=== PATIENT | female | born 1960 | race Caucasian/White ===

== ENCOUNTER 2022-10-27 01:55 | Inpatient (IN) | payer MEDICAID, OTHER ==
[~2022-10-27] VITALS: Ht 165.1 cm; Wt 64.9 kg
[2022-10-27 02:14] LABS: Basophils # (auto) 0.1 10 ^3/uL (0-0.2); Basophils % (auto) 0.5 % (0.0-2.0); Eosinophils # (auto) 0 10 ^3/uL (0-0.8); Eosinophils % (auto) 0.1 % (0.0-7.0); Hematocrit 40.2 % (36.0-46.0); Hemoglobin 13.5 g/dL (12.2-16.2); Lymphocytes # (auto) 1.5 10 ^3/uL (0.4-5.4); Lymphocytes % (auto) 13.1 % (10.0-50.0); Mean Corpuscular Hemoglobin 32.8 pg (28.0-32.0); Mean Corpuscular Hgb Conc. 33.5 g/dL (32.0-36.0); Mean Corpuscular Volume 97.8 fL (80.0-100.0); Monocytes # (auto) 0.6 10 ^3/uL (0-1.3); Monocytes % (auto) 5.5 % (0.0-12.0); Neutrophils # (auto) 9.2 10 ^3/uL (1.6-8.6); Neutrophils % (auto) 80.8 % (37.0-80.0); Nucleated Red Blood Cells % 0.1 %; Red Blood Cells 4.11 10^6/uL (4.0-5.20); White Blood Cell 11.4 10^3/uL (4.4-10.8)
[2022-10-27] MEDS ORDERED: MIDAZOLAM HCL 2MG/2ML 2ml VIAL (1mg/ml) IV ONE (02:15)
[2022-10-27] MEDS ORDERED: MAGNESIUM SULFATE 1GM/100ML 100 ML IV SCH (02:15)
[2022-10-27] MEDS: MAGNESIUM SULFATE 1GM/100ML 100 ML IV SCH ×2 (02:16→02:21)
[2022-10-27] MEDS ORDERED: dilTIAZem HCL 50 MG/10 ML VIAL IV ONE (02:16)
[2022-10-27] MEDS ORDERED: AMIODARONE HCL (50 MG/ ML) 3 ML VIAL IV ONE (02:20)
[2022-10-27] MEDS: AMIODARONE HCL 150 MG in D5W 5% 100 ML IV ONE ×2 (02:24→02:40)
[2022-10-27 02:33] LABS: Albumin 3.3 g/dL (3.4-5.0); BUN/Creatinine Ratio 14.4; Magnesium 1.9 mg/dL (1.6-2.6); Potassium 4.1 mmol/L (3.5-5.1)
[2022-10-27 02:36] LABS: Bilirubin, Total 0.9 mg/dL (0.2-1.0); Total Protein 7.3 g/dL (6.4-8.2)
[2022-10-27] MEDS ORDERED: dilTIAZem 25 MG/5 ML VIAL IV ONE ×2 (02:45)
[2022-10-27] MEDS ORDERED: dilTIAZem 125mg/125ml BAG KIT 100 ML IV SCH (02:45)
[2022-10-27 03:03] LABS: INR 1.1 (0.9-1.15); Partial Thromboplastin Time 26.8 sec (24.6-33.4)
[2022-10-27] MEDS ORDERED: DOBUTamine 1000MCG/ML 250 ML IV ONE (03:30)
[2022-10-27] MEDS ORDERED: NITROGLYCERIN 0.4 MG SL TAB SL PRN (06:00)
[2022-10-27] MEDS ORDERED: ACETAMINOPHEN 325 MG TAB PO PRN (06:00)
[2022-10-27] MEDS ORDERED: MORPHINE SULFATE INJ 2 MG/ml SYRG IV PRN (06:00)
[2022-10-27] MEDS ORDERED: ONDANSETRON HCL 4 MG/2 ML VIAL IV PRN (06:00)
[2022-10-27] MEDS: FUROSEMIDE 20 MG/2 ML VIAL IV SCH ×2 (06:13→18:50)
[2022-10-27] MEDS ORDERED: AMIODARONE HCL 75 MG in D5W 5% 100 ML IV ONE (07:15)
[2022-10-27] MEDS ORDERED: AMIODARONE 450mg/250ml AE 250 ML IV SCH (07:30)
[2022-10-27] MEDS ORDERED: HYDROCORTISONE SOD SUCC 100 MG/2ML INJ VIAL ONE (08:00)
[2022-10-27] MEDS: ASPirin 81 mg TAB PO SCH (09:58)
[2022-10-27] MEDS: PANTOPRAZOLE 40 MG TAB PO SCH (09:59)
[2022-10-27] MEDS ORDERED: CARVEDILOL 12.5 MG TAB PO SCH (10:00)
[2022-10-27] MEDS: DOBUTamine 1000MCG/ML 250 ML IV SCH (13:45)
[2022-10-27] MEDS: AMIODARONE 450mg/250ml AE 250 ML IV SCH (15:18)
[2022-10-27 16:12] VITALS: BP 80/58
[2022-10-27] MEDS ORDERED: LIDOCAINE 1% (LOCAL ANESTH.) PF 5ml SDV ID ONE (18:30)
[2022-10-27] MEDS: MIDODRINE HCL 10 MG TAB PO SCH (18:49)
[2022-10-27] MEDS: RIVAROXABAN 15 MG TAB PO SCH (18:50)
[2022-10-27] MEDS: LEVALBUTEROL HCL 1.25 MG/3 ML NEB NEB SCH (19:02)
[2022-10-27] MEDS: SODIUM CHLOR 0.9% PF (SALINE LOCK) 10ML VIAL/SYR IV SCH (22:00)
[2022-10-27] MEDS: ATORVASTATIN 20 MG TAB PO SCH (22:36)
[2022-10-27] MEDS: LORazepam 0.5 MG TAB PO PRN (22:37)
[2022-10-28] MEDS: DOBUTamine 1000MCG/ML 250 ML IV SCH (01:22)
[2022-10-28] MEDS: AMIODARONE 450mg/250ml AE 250 ML IV SCH ×2 (05:08→22:34)
[2022-10-28] MEDS: NOREPINEPHRINE 8 MG/250ML KIT 250 ML IV SCH ×2 (05:23→14:45)
[2022-10-28 05:41] LABS: Basophils # (auto) 0 10 ^3/uL (0-0.2); Basophils % (auto) 0.4 % (0.0-2.0); Eosinophils # (auto) 0 10 ^3/uL (0-0.8); Eosinophils % (auto) 0.5 % (0.0-7.0); Lymphocytes # (auto) 2.5 10 ^3/uL (0.4-5.4); Mean Corpuscular Hemoglobin 32.7 pg (28.0-32.0); Mean Corpuscular Hgb Conc. 35.3 g/dL (32.0-36.0); Mean Corpuscular Volume 92.7 fL (80.0-100.0); Monocytes # (auto) 0.8 10 ^3/uL (0-1.3); Monocytes % (auto) 10.9 % (0.0-12.0); Neutrophils # (auto) 4.1 10 ^3/uL (1.6-8.6); Neutrophils % (auto) 55.2 % (37.0-80.0); Nucleated Red Blood Cells % 0.1 %; Red Blood Cells 3.67 10^6/uL (4.0-5.20); Red Cell Distribution Width 12.8 % (11.8-14.3); White Blood Cell 7.5 10^3/uL (4.4-10.8)
[2022-10-28] MEDS: FUROSEMIDE 20 MG/2 ML VIAL IV SCH ×2 (05:48→18:53)
[2022-10-28] MEDS: MIDODRINE HCL 10 MG TAB PO SCH ×3 (05:54→18:49)
[2022-10-28 05:59] LABS: Albumin 2.9 g/dL (3.4-5.0); Calcium 8.2 mg/dL (8.5-10.1); Potassium 3.4 mmol/L (3.5-5.1)
[2022-10-28 06:05] LABS: BUN/Creatinine Ratio 17.8; Bilirubin, Total 1.1 mg/dL (0.2-1.0); Total Protein 6.6 g/dL (6.4-8.2)
[2022-10-28] MEDS: LEVALBUTEROL HCL 1.25 MG/3 ML NEB NEB SCH ×4 (06:30→18:31)
[2022-10-28 06:47] LABS: Alcohol, Urine < 3.0 mg/dL (0-10); Amphetamine Screen, Urine NEGATIVE (NEGATIVE); Barbiturate Scree,Urine NEGATIVE (NEGATIVE); Benzodiazephine Screen, Urine POSITIVE (NEGATIVE); Cannabinoid Screen, Urine NEGATIVE (NEGATIVE); Cocaine Screen, Urine NEGATIVE (NEGATIVE); Phencyclidine Screen, Urine NEGATIVE (NEGATIVE)
[2022-10-28 06:50] LABS: Opiate Scree,Urine NEGATIVE (NEGATIVE)
[2022-10-28] MEDS ORDERED: POTASSIUM CHL 20 Meq TABLET PO ONE (07:15)
[2022-10-28] MEDS: PANTOPRAZOLE 40 MG TAB PO SCH (10:59)
[2022-10-28] MEDS: ASPirin 81 mg TAB PO SCH (10:59)
[2022-10-28] MEDS: SODIUM CHLOR 0.9% PF (SALINE LOCK) 10ML VIAL/SYR IV SCH ×2 (11:00→22:28)
[2022-10-28] MEDS: RIVAROXABAN 15 MG TAB PO SCH (18:50)
[2022-10-28] MEDS: ATORVASTATIN 20 MG TAB PO SCH (22:28)
[2022-10-29] VITALS (45 sets, daily range): BP systolic 83–138; BP diastolic 51–101
[2022-10-29] MEDS: LEVALBUTEROL HCL 1.25 MG/3 ML NEB NEB SCH ×4 (00:21→19:16)
[2022-10-29] MEDS: NOREPINEPHRINE 8 MG/250ML KIT 250 ML IV SCH ×2 (01:37→03:00)
[2022-10-29] MEDS: LORazepam 0.5 MG TAB PO PRN ×2 (02:58→21:43)
[2022-10-29 06:03] LABS: Albumin 2.7 g/dL (3.4-5.0); BUN/Creatinine Ratio 19.8; Bilirubin, Total 0.4 mg/dL (0.2-1.0); Calcium 8.3 mg/dL (8.5-10.1); Magnesium 2.3 mg/dL (1.6-2.6); Potassium 3.2 mmol/L (3.5-5.1); Total Protein 6.7 g/dL (6.4-8.2)
[2022-10-29] MEDS: FUROSEMIDE 20 MG/2 ML VIAL IV SCH ×2 (06:21→18:28)
[2022-10-29] MEDS: MIDODRINE HCL 10 MG TAB PO SCH ×3 (06:23→18:28)
[2022-10-29] MEDS ORDERED: POTASSIUM CHL 20 Meq TABLET PO ONE (07:00)
[2022-10-29] MEDS: ASPirin 81 mg TAB PO SCH (08:14)
[2022-10-29] MEDS: SODIUM CHLOR 0.9% PF (SALINE LOCK) 10ML VIAL/SYR IV SCH ×2 (08:15→22:00)
[2022-10-29] MEDS: PANTOPRAZOLE 40 MG TAB PO SCH (08:15)
[2022-10-29] MEDS: AMIODARONE 450mg/250ml AE 250 ML IV SCH (14:29)
[2022-10-29] MEDS ORDERED: FURO20TA3 PO (16:54)
[2022-10-29] MEDS ORDERED: CARV25TA PO (16:54)
[2022-10-29] MEDS ORDERED: RIVA20TA PO (16:54)
[2022-10-29] MEDS ORDERED: SACU1TAB PO (16:54)
[2022-10-29] MEDS ORDERED: RIVAROXABAN 20 MG TAB PO SCH (18:00)
[2022-10-29] MEDS: ATORVASTATIN 20 MG TAB PO SCH (21:43)
[2022-10-30] MEDS: AMIODARONE 450mg/250ml AE 250 ML IV SCH ×2 (01:30→16:47)
[2022-10-30 05:00] VITALS: BP 111/83
[2022-10-30] MEDS: FUROSEMIDE 20 MG/2 ML VIAL IV SCH (05:43)
[2022-10-30] MEDS: MIDODRINE HCL 10 MG TAB PO SCH ×3 (05:44→17:39)
[2022-10-30 06:30] LABS: Basophils # (auto) 0 10 ^3/uL (0-0.2); Basophils % (auto) 0.8 % (0.0-2.0); Eosinophils # (auto) 0.1 10 ^3/uL (0-0.8); Eosinophils % (auto) 1.8 % (0.0-7.0); Hematocrit 40.2 % (36.0-46.0); Hemoglobin 13.7 g/dL (12.2-16.2); Lymphocytes # (auto) 2.4 10 ^3/uL (0.4-5.4); Lymphocytes % (auto) 39.9 % (10.0-50.0); Mean Corpuscular Hemoglobin 32.1 pg (28.0-32.0); Mean Corpuscular Volume 94.3 fL (80.0-100.0); Monocytes # (auto) 0.6 10 ^3/uL (0-1.3); Monocytes % (auto) 9.9 % (0.0-12.0); Neutrophils # (auto) 2.8 10 ^3/uL (1.6-8.6); Neutrophils % (auto) 47.6 % (37.0-80.0); Nucleated Red Blood Cells % 0.1 %; Red Blood Cells 4.27 10^6/uL (4.0-5.20); Red Cell Distribution Width 12.9 % (11.8-14.3); White Blood Cell 5.9 10^3/uL (4.4-10.8)
[2022-10-30] MEDS: LEVALBUTEROL HCL 1.25 MG/3 ML NEB NEB SCH ×4 (06:40→18:50)
[2022-10-30 07:08] LABS: Potassium 3.7 mmol/L (3.5-5.1)
[2022-10-30 07:16] LABS: BUN/Creatinine Ratio 21.5; Calcium 9.1 mg/dL (8.5-10.1)
[2022-10-30 08:29] VITALS: BP 109/87
[2022-10-30] MEDS: LORazepam 0.5 MG TAB PO PRN (09:03)
[2022-10-30] MEDS: ASPirin 81 mg TAB PO SCH (09:51)
[2022-10-30] MEDS: PANTOPRAZOLE 40 MG TAB PO SCH (09:51)
[2022-10-30] MEDS: SODIUM CHLOR 0.9% PF (SALINE LOCK) 10ML VIAL/SYR IV SCH ×2 (09:51→22:00)
[2022-10-30 12:26] VITALS: BP 97/72
[2022-10-30 14:11] VITALS: BP 99/71
[2022-10-30] MEDS ORDERED: DIGOXIN (250MCG/ML) 2 ML AMPULE IV ONE (15:00)
[2022-10-30 17:22] VITALS: BP 121/93
[2022-10-30] MEDS: RIVAROXABAN 15 MG TAB PO SCH (17:39)
[2022-10-30] MEDS: ATORVASTATIN 20 MG TAB PO SCH (21:21)
[2022-10-30] MEDS: MAGNESIUM OXIDE 400 MG TAB PO SCH (21:25)
[2022-10-30 22:00] VITALS: BP 112/70
[2022-10-31] MEDS: LEVALBUTEROL HCL 1.25 MG/3 ML NEB NEB SCH ×5 (00:03→22:21)
[2022-10-31 05:00] VITALS: BP 131/92
[2022-10-31] MEDS: MIDODRINE HCL 10 MG TAB PO SCH ×3 (05:57→17:56)
[2022-10-31 07:03] LABS: Basophils # (auto) 0 10 ^3/uL (0-0.2); Basophils % (auto) 0.7 % (0.0-2.0); Eosinophils # (auto) 0.1 10 ^3/uL (0-0.8); Eosinophils % (auto) 2.6 % (0.0-7.0); Hematocrit 38.1 % (36.0-46.0); Hemoglobin 13.3 g/dL (12.2-16.2); Lymphocytes # (auto) 1.9 10 ^3/uL (0.4-5.4); Lymphocytes % (auto) 40.9 % (10.0-50.0); Mean Corpuscular Hemoglobin 32.8 pg (28.0-32.0); Mean Corpuscular Hgb Conc. 34.9 g/dL (32.0-36.0); Mean Corpuscular Volume 93.8 fL (80.0-100.0); Monocytes # (auto) 0.5 10 ^3/uL (0-1.3); Monocytes % (auto) 9.9 % (0.0-12.0); Neutrophils # (auto) 2.1 10 ^3/uL (1.6-8.6); Neutrophils % (auto) 45.9 % (37.0-80.0); Red Blood Cells 4.06 10^6/uL (4.0-5.20); Red Cell Distribution Width 12.6 % (11.8-14.3); White Blood Cell 4.7 10^3/uL (4.4-10.8)
[2022-10-31 07:23] LABS: BUN/Creatinine Ratio 22.6; Calcium 9.2 mg/dL (8.5-10.1); Magnesium 2.1 mg/dL (1.6-2.6); Potassium 3.4 mmol/L (3.5-5.1)
[2022-10-31 09:10] VITALS: BP 92/58
[2022-10-31] MEDS: DIGOXIN (250MCG/ML) 2 ML AMPULE IV SCH (09:59)
[2022-10-31] MEDS: AMIODARONE 450mg/250ml AE 250 ML IV SCH ×2 (09:59→22:30)
[2022-10-31] MEDS: FUROSEMIDE 20 MG/2 ML VIAL IV SCH (10:00)
[2022-10-31] MEDS: SODIUM CHLOR 0.9% PF (SALINE LOCK) 10ML VIAL/SYR IV SCH ×2 (10:00→22:00)
[2022-10-31] MEDS: PANTOPRAZOLE 40 MG TAB PO SCH (10:00)
[2022-10-31] MEDS: MAGNESIUM OXIDE 400 MG TAB PO SCH ×2 (10:00→21:18)
[2022-10-31] MEDS: ASPirin 81 mg TAB PO SCH (10:00)
[2022-10-31 13:07] VITALS: BP 117/72
[2022-10-31 17:13] VITALS: BP 120/82
[2022-10-31] MEDS: RIVAROXABAN 15 MG TAB PO SCH (17:56)
[2022-10-31] MEDS: LORazepam 0.5 MG TAB PO PRN (21:17)
[2022-10-31] MEDS: ATORVASTATIN 20 MG TAB PO SCH (21:17)
[2022-10-31] MEDS: AMIODARONE HCL 200 MG TAB PO SCH (21:18)
[2022-10-31 22:00] VITALS: BP 122/101
[2022-11-01 05:00] VITALS: BP 125/80
[2022-11-01] MEDS: MIDODRINE HCL 10 MG TAB PO SCH ×3 (06:00→18:09)
[2022-11-01 06:17] LABS: Potassium 4.4 mmol/L (3.5-5.1)
[2022-11-01 06:23] LABS: Bilirubin, Total 0.4 mg/dL (0.2-1.0); Calcium 8.6 mg/dL (8.5-10.1); Total Protein 6.3 g/dL (6.4-8.2)
[2022-11-01] MEDS: LEVALBUTEROL HCL 1.25 MG/3 ML NEB NEB SCH ×4 (07:09→18:40)
[2022-11-01 08:00] VITALS: BP 110/84
[2022-11-01] MEDS: FUROSEMIDE 20 MG/2 ML VIAL IV SCH (10:56)
[2022-11-01] MEDS: DIGOXIN (250MCG/ML) 2 ML AMPULE IV SCH (10:56)
[2022-11-01] MEDS: ASPirin 81 mg TAB PO SCH (10:57)
[2022-11-01] MEDS: SODIUM CHLOR 0.9% PF (SALINE LOCK) 10ML VIAL/SYR IV SCH ×2 (10:57→22:33)
[2022-11-01] MEDS: AMIODARONE HCL 200 MG TAB PO SCH ×2 (10:58→22:32)
[2022-11-01] MEDS: MAGNESIUM OXIDE 400 MG TAB PO SCH ×2 (10:58→22:33)
[2022-11-01] MEDS: PANTOPRAZOLE 40 MG TAB PO SCH (10:58)
[2022-11-01 12:00] VITALS: BP 115/75
[2022-11-01 16:00] VITALS: BP 119/79
[2022-11-01] MEDS: RIVAROXABAN 15 MG TAB PO SCH (18:09)
[2022-11-01] MEDS: ATORVASTATIN 20 MG TAB PO SCH (22:32)
[2022-11-01] MEDS: LORazepam 0.5 MG TAB PO PRN (22:38)
[2022-11-02 03:17] VITALS: BP 124/82
[2022-11-02] MEDS: MIDODRINE HCL 10 MG TAB PO SCH (06:11)
[2022-11-02] MEDS: LEVALBUTEROL HCL 1.25 MG/3 ML NEB NEB SCH ×4 (07:33→19:31)
[2022-11-02 09:00] VITALS: BP 115/86
[2022-11-02] MEDS ORDERED: DIGOXIN (250MCG/ML) 2 ML AMPULE IV ONE (09:45)
[2022-11-02] MEDS: DIGOXIN (250MCG/ML) 2 ML AMPULE IV SCH (09:55)
[2022-11-02] MEDS: AMIODARONE HCL 200 MG TAB PO SCH ×2 (09:56→21:27)
[2022-11-02] MEDS: ASPirin 81 mg TAB PO SCH (09:56)
[2022-11-02] MEDS: SODIUM CHLOR 0.9% PF (SALINE LOCK) 10ML VIAL/SYR IV SCH ×2 (09:56→21:28)
[2022-11-02] MEDS: PANTOPRAZOLE 40 MG TAB PO SCH (09:58)
[2022-11-02] MEDS: MAGNESIUM OXIDE 400 MG TAB PO SCH ×2 (10:01→21:28)
[2022-11-02] MEDS: FUROSEMIDE 20 MG/2 ML VIAL IV SCH (10:02)
[2022-11-02 13:00] VITALS: BP 125/80
[2022-11-02 16:18] VITALS: BP 125/80
[2022-11-02 17:00] VITALS: BP 109/67
[2022-11-02] MEDS: ATORVASTATIN 20 MG TAB PO SCH (21:27)
[2022-11-02 22:00] VITALS: BP 144/87
[2022-11-02] MEDS: LORazepam 0.5 MG TAB PO PRN (22:32)
[2022-11-02] MEDS: RIVAROXABAN 15 MG TAB PO SCH (22:32)
[2022-11-03] MEDS ORDERED: TEMAZEPAM 15 MG CAP PO ONE ×2 (00:45→23:00)
[2022-11-03 05:00] VITALS: BP 96/62
[2022-11-03] MEDS: MIDODRINE HCL 10 MG TAB PO SCH ×3 (05:15→19:00)
[2022-11-03 06:16] LABS: BUN/Creatinine Ratio 27.7; Calcium 9.6 mg/dL (8.5-10.1); Potassium 3.9 mmol/L (3.5-5.1)
[2022-11-03] MEDS: LEVALBUTEROL HCL 1.25 MG/3 ML NEB NEB SCH ×5 (06:41→21:17)
[2022-11-03 09:00] VITALS: BP 124/81
[2022-11-03] MEDS: ASPirin 81 mg TAB PO SCH (10:29)
[2022-11-03] MEDS: SODIUM CHLOR 0.9% PF (SALINE LOCK) 10ML VIAL/SYR IV SCH ×2 (10:29→21:48)
[2022-11-03] MEDS: FUROSEMIDE 20 MG/2 ML VIAL IV SCH (10:29)
[2022-11-03] MEDS: DIGOXIN (250MCG/ML) 2 ML AMPULE IV SCH (10:29)
[2022-11-03] MEDS: AMIODARONE HCL 200 MG TAB PO SCH ×2 (10:30→21:52)
[2022-11-03] MEDS: PANTOPRAZOLE 40 MG TAB PO SCH (10:30)
[2022-11-03] MEDS: MAGNESIUM OXIDE 400 MG TAB PO SCH ×2 (10:30→21:51)
[2022-11-03 12:55] VITALS: BP 121/64
[2022-11-03] MEDS ORDERED: DIGO0.12 PO (16:02)
[2022-11-03] MEDS ORDERED: MID10T PO (16:02)
[2022-11-03] MEDS ORDERED: MAGN400T40 PO (16:02)
[2022-11-03] MEDS ORDERED: AMIO200T33 PO (16:03)
[2022-11-03 16:15] VITALS: BP 121/64
[2022-11-03 17:07] VITALS: BP 122/82
[2022-11-03] MEDS: RIVAROXABAN 15 MG TAB PO SCH (19:00)
[2022-11-03] MEDS: ATORVASTATIN 20 MG TAB PO SCH (21:51)
[2022-11-03 22:00] VITALS: BP 128/94
[2022-11-04 05:00] VITALS: BP 103/70
[2022-11-04] MEDS: MIDODRINE HCL 10 MG TAB PO SCH ×2 (05:46→12:00)
[2022-11-04] MEDS: LEVALBUTEROL HCL 1.25 MG/3 ML NEB NEB SCH ×3 (06:00→12:13)
[2022-11-04] MEDS: FUROSEMIDE 20 MG/2 ML VIAL IV SCH (10:18)
[2022-11-04] MEDS: MAGNESIUM OXIDE 400 MG TAB PO SCH (10:19)
[2022-11-04] MEDS: ASPirin 81 mg TAB PO SCH (10:19)
[2022-11-04] MEDS: DIGOXIN (250MCG/ML) 2 ML AMPULE IV SCH (10:19)
[2022-11-04] MEDS: PANTOPRAZOLE 40 MG TAB PO SCH (10:19)
[2022-11-04] MEDS: SODIUM CHLOR 0.9% PF (SALINE LOCK) 10ML VIAL/SYR IV SCH (10:20)
[2022-11-04] MEDS: AMIODARONE HCL 200 MG TAB PO SCH (10:20)
== END 2022-11-04 13:30 | disposition home or self-care (01) | DRG 190 ==
LOC: ER 01:55 → EDBD 01:55 → TELE 06:33 → DOU IN ICU 10-29 01:22 → ICU CENTRL 10-29 01:23 → TELE-WESTW 10-29 14:43
PROVIDERS: ADMIT Nurse Practitioner; ATTEND Nurse Practitioner Acute Care
PROC: 02HV33Z Insertion of Infusion Device into Superior Vena Cava, Percutaneous Approach (ICD-10-PCS; principal; 2022-10-27)
PROC: B548ZZA Ultrasonography of Superior Vena Cava, Guidance (ICD-10-PCS; 2022-10-27)
DX: I21.4 Non-ST elevation (NSTEMI) myocardial infarction (principal); J96.01 Acute respiratory failure with hypoxia; R57.0 Cardiogenic shock; I13.0 Hypertensive heart and chronic kidney disease with heart failure and stage 1 through stage 4 chronic kidney disease, or unspecified chronic kidney disease; N17.9 Acute kidney failure, unspecified; I50.23 Acute on chronic systolic (congestive) heart failure; Z20.822 Contact with and (suspected) exposure to COVID-19; I48.91 Unspecified atrial fibrillation; N18.31 Chronic kidney disease, stage 3a; Z79.899 Other long term (current) drug therapy; Z79.01 Long term (current) use of anticoagulants
CPT/HCPCS: 36415; 36569; 71045; 71046; 80048; 80053; 80162; 80307; 83735; 83880; 84484; 85025; 85610; 85730; 87081; 87426; 92960; 93005; 93306; 94640; 96365; 96368; 99291; G0378; J2250; J7060

== ENCOUNTER 2025-07-26 07:50 | Day surgery (SDC) | payer MEDICAID ==
[2025-07-24 13:14] LABS: Hematocrit 43.2 % (36.0-46.0); Hemoglobin 14.9 g/dL (12.2-16.2); Mean Corpuscular Hemoglobin 32.3 pg (28.0-32.0); Mean Corpuscular Volume 93.5 fL (80.0-100.0); Nucleated Red Blood Cells % 0.1 %
[2025-07-24 13:34] LABS: INR 0.97 (0.9-1.15); Partial Thromboplastin Time 27.9 SEC (24.5-34.5); Prothrombin Time 10.3 sec (9.3-11.8)
[2025-07-24 13:42] LABS: Albumin 4.3 g/dL (3.2-4.8); Anion Gap 8 (5-15); BUN/Creatinine Ratio 19.2 (10.0-20.0); Blood Urea Nitrogen 23 mg/dL (9-23); Calcium 9.5 mg/dL (8.7-10.4); Carbon Dioxide 26 mmol/L (20-31); Chloride 105 mmol/L (98-107); Glucose 83 mg/dL (74-106); Potassium 4.8 mmol/L (3.5-5.1); Sodium 139 mmol/L (136-145); Total Protein 7.7 g/dL (5.7-8.2)
[2025-07-24 13:43] LABS: Bilirubin, Total 0.3 mg/dL (0.2-1.0)
[2025-07-24 13:51] LABS: Alanine Aminotransferase 110 U/L (7-40); Alkaline Phosphatase 237 U/L (46-116)
[~2025-07-26] VITALS: Ht 165.1 cm; Wt 63.0 kg
[~2025-07-26 07:50] MED LIST: ATOR10TA52 PO; CARV-217 PO; DIGO0.12 PO; FURO20TA3 PO; RIVA20TA PO; SACU1TAB PO; SPIR25TA8 PO
[2025-07-26] MEDS ORDERED: PROPOFOL 10 MG/ML 20 ML IV ONE (09:20)
[2025-07-26] MEDS ORDERED: LIDOCAINE 2% (LOCAL ANESTH.) PF 5ml SDV ONE (09:20)
[2025-07-26] MEDS ORDERED: KETAMINE 50mg/ML 1ml syringe ONE (09:29)
[2025-07-26] MEDS ORDERED: MIDAZOLAM HCL 2MG/2ML 2ml VIAL (1mg/ml) ONE (09:29)
[2025-07-26 09:34] VITALS: PULSE 118; RESP 13; O2SAT 97
[2025-07-26 09:41] VITALS: PULSE 118; RESP 13; TEMP 97; O2SAT 97
[2025-07-26] MEDS ORDERED: ONDANSETRON HCL 4 MG/2 ML VIAL IV PRN (09:45)
[2025-07-26] MEDS ORDERED: HYDROmorphone HCL 2 MG/ML VL/or syr IV PRN (09:45)
--- NOTE | 2025-07-26 09:52 | DVHOP2 ---
Operative Report DATE OF OPERATION: 07/26/25 PROCEDURE: Colonoscopy with cold biopsy polypectomy. PREOPERATIVE INDICATION: The patient is a 64 -year-old female undergoing colonoscopy for colon cancer screening POSTOPERATIVE DIAGNOSES: 1. There were two diminutive benign-appearing rectal hyperplastic excrescences that were seen and removed by cold biopsy forceps 2. There were trace to 1+ internal hemorrhoids otherwise completely normal colonoscopy examination up to the cecum and terminal ileum PROCEDURE PERFORMED BY: Malia Kelly M.D. SCOPE: Olympus videocolonoscope. ASA CLASS: 3. PREOPERATIVE MEDICATIONS: Dr. Husam Pike PROCEDURE IN DETAIL: After obtaining an informed consent, the patient was placed on left lateral decubitus position. She was then sedated with the above medications. A rectal examination was performed that was normal. The colonoscope was then passed through the anus into the rectosigmoid and through the descending, transverse, and ascending colon up to the cecum with visualization of the appendiceal orifice, base of the cecum and the ileocecal valve. The colonoscope was then withdrawn. The distal 5-10 cm of the terminal ileum were normal No masses or colitis were seen. There was no clear-cut diverticular disease. Patient had two diminutive rectal excrescences that were removed by cold biopsy forceps. They appeared hyperplastic On retroflexion and straight on view the patient had trace to 1+ internal hemorrhoids The patient tolerated the procedure well without difficulty. WITHDRAWAL TIME: 6 minutes QUALITY OF THE PREP: [place] Bowel Prep score: 9. COMPLICATIONS : None SPECIMENS: Tiny rectal diminutive polyps DISPOSITION: Stable D/C to home PLAN: 1. Repeat colonoscopy base on biopsy result likely in 7-10 years 2. Resume GI soft diet advance as tolerated 3. Local anorectal hemorrhoidal care 4. Outpatient follow up with me in 4-6 weeks to review results and discuss further management MALIA KELLY MD Jul 26, 2025 09:51
[2025-07-26 09:55] VITALS: PULSE 124; RESP 16; O2SAT 97
[2025-07-26 10:10] VITALS: BP 116/73; PULSE 118; RESP 15; O2SAT 97
== END 2025-07-26 09:42 | disposition home or self-care (01) ==
LOC: GI 07:50
PROVIDERS: ATTEND Internal Medicine Gastroenterology
DX: Z12.11 Encounter for screening for malignant neoplasm of colon (principal); K62.1 Rectal polyp; K64.8 Other hemorrhoids; I48.91 Unspecified atrial fibrillation; I50.9 Heart failure, unspecified; Z90.89 Acquired absence of other organs; Z87.891 Personal history of nicotine dependence; Z79.899 Other long term (current) drug therapy; Z82.49 Family history of ischemic heart disease and other diseases of the circulatory system
CPT/HCPCS: 36415; 45380; 80053; 85025; 85610; 85730; 88305; J2003; J2250; J2704; J7030